=== PATIENT | female | born 1955 | race Two or more races ===

== ENCOUNTER 2020-11-09 10:04 | Emergency (ER) | payer OTHER ==
[~2020-11-09] VITALS: Ht 157.5 cm; Wt 85.0 kg
--- NOTE | 2020-11-09 10:37 | NUR ---
Pt reports she was wearing "sandles" so tripped and fell this AM. MGLF. -hit head, - LOC, -blood thinners. MD Corral at bedside for eval.
[2020-11-09] MEDS ORDERED: HYDROcodone/APAP 5/325 TABLET PO STA ×2 (10:40→12:01)
[2020-11-09] MEDS ORDERED: ONDANSETRON ODT 4 MG ONE (10:44)
[2020-11-09] MEDS ORDERED: HYDROcodone/APAP 5/325 TABLET ONE ×2 (10:44→12:26)
--- NOTE | 2020-11-09 10:57 | NUR ---
Pt ambulatory to imaging.
[2020-11-09] MEDS ORDERED: ONDANSETRON ODT 4 MG PO ONE (11:00)
[2020-11-09 12:28] VITALS: BP 189/99
--- NOTE | 2020-11-09 12:41 | NUR ---
MD Corral made aware of BP, no new orders. Pt also stated at this time that she has HTN and did not take her morning med(s).
== END 2020-11-09 12:43 | disposition home or self-care (01) ==
LOC: ED 12:00
DX: S42.291A Other displaced fracture of upper end of right humerus, initial encounter for closed fracture (principal); E11.9 Type 2 diabetes mellitus without complications; Z88.0 Allergy status to penicillin; W01.0XXA Fall on same level from slipping, tripping and stumbling without subsequent striking against object, initial encounter; Y93.89 Activity, other specified; Y92.410 Unspecified street and highway as the place of occurrence of the external cause; Y99.8 Other external cause status
CPT/HCPCS: 29105; 73030; 73070; 73110; 99284; Q0162